=== PATIENT | female | born 1985 | race Caucasian/White ===

== ENCOUNTER 2022-11-16 07:46 | Emergency (ER) | payer BC ==
[2022-11-16 07:59] VITALS: BMI 23.9
[2022-11-16] MEDS ORDERED: IBUPROFEN 600 MG TABLET (FP) PO ONE ×2 (08:44→08:52)
[2022-11-16] MEDS ORDERED: diphenhydrAMINE HCL 25 MG CAPSULE (FP) PO ONE ×2 (08:56→08:57)
[2022-11-16 10:20] VITALS: BP 104/71; PULSE 81; RESP 19; TEMP 99.1
== END 2022-11-16 10:30 | disposition home or self-care (01) ==
LOC: JER 07:46
DX: T63.441A Toxic effect of venom of bees, accidental (unintentional), initial encounter (principal); M79.602 Pain in left arm; L53.9 Erythematous condition, unspecified; L29.0 Pruritus ani
CPT/HCPCS: 99283-25

== ENCOUNTER 2023-09-13 08:52 | Emergency (ER) | payer BC ==
[2023-09-13 09:02] VITALS: BP 120/68; PULSE 85; RESP 18; TEMP 98.7; BMI 23.1
[2023-09-13 09:44] LABS: PH,URINE 7.5 (5.0-8.0); URINE APPEARANCE CLEAR; URINE BILIRUBIN NEGATIVE (NEGATIVE); URINE COLOR YELLOW; URINE GLUCOSE (UA) NEGATIVE (NEGATIVE); URINE KETONE NEGATIVE (NEGATIVE); URINE LEUK ESTERASE NEGATIVE (NEGATIVE); URINE NITRITE NEGATIVE (NEGATIVE); URINE PROTEIN NEGATIVE (NEGATIVE)
[2023-09-13 09:48] LABS: BASO % 0.4 % (0-2.0); EOS % 0.9 % (0-4.5); HEMATOCRIT 41.2 % (32.4-45.2); HEMOGLOBIN 13.9 GM/dL (10.7-15.3); LYMPH % 25.8 % (8-40); MCH 26.1 pg (25.7-33.7); MCHC 33.7 g/dl (32.0-36.0); MEAN CELL VOLUME 77.5 fl (80-96); MEAN PLT VOLUME 7.2 fl (7.5-11.1); MONO % 5.9 % (3.8-10.2); PLATELET COUNT 343 10^3/uL (134-434); RBC 5.31 M/mm3 (3.60-5.2); RDW 15.2 % (11.6-15.6)
[2023-09-13 10:10] LABS: POTASSIUM 4.2 mmol/L (3.5-5.1)
[2023-09-13 10:12] LABS: CALCIUM 9.4 mg/dL (8.5-10.1)
[2023-09-13 10:14] LABS: ALBUMIN 3.4 g/dl (3.4-5.0); BLOOD UREA NITROGEN 8.8 mg/dL (7-18)
[2023-09-13 10:17] LABS: CREATININE 0.6 mg/dL (0.55-1.3)
[2023-09-13 10:18] LABS: BILIRUBIN,TOTAL 0.4 mg/dL (0.2-1)
== END 2023-09-13 11:34 | disposition home or self-care (01) ==
LOC: JER 08:52
DX: O20.9 Hemorrhage in early pregnancy, unspecified (principal); Z3A.09 9 weeks gestation of pregnancy
CPT/HCPCS: 36415; 76801-TC; 80053; 81003; 84702; 85025; 87086; 99284-25